=== PATIENT | male | born 1980 | race Caucasian/White ===

== ENCOUNTER 2019-09-22 02:46 | Emergency (ER) | payer OTHER ==
[~2019-09-22] VITALS: Ht 177.8 cm; Wt 102.5 kg
[2019-09-22 03:30] VITALS: BP_SYST 132
--- NOTE | 2019-09-22 03:58 | NUR ---
Patient to ER bed H1 to gown for evaluation. Side rails up.
[2019-09-22] MEDS ORDERED: ASPIRIN 81 MG TAB.CHEW PO ONE (04:00)
--- NOTE | 2019-09-22 04:00 | NUR ---
Patient came to ER. C/O Palpitation x 2-3 days. Patient states "had palpitation on and off since Wednesday, no shortness of breath or chest pain. " Denies heart problems A/O,X4, palpitation, vss.
--- NOTE | 2019-09-22 04:05 | NUR ---
ER at bedside examining patient.
--- NOTE | 2019-09-22 04:19 | NUR ---
X- ray at bedside.
[2019-09-22 04:39] LABS: BASOPHILS % (AUTO) 0.6 % (0.0-2.0); EOSINOPHILS # (AUTO) 0.2 K/uL (0.0-0.4); EOSINOPHILS % (AUTO) 2.7 % (0.0-4.0); HEMATOCRIT 45.1 % (36-54); HEMOGLOBIN 15.5 g/dL (14.0-18.0); LYMPHOCYTES # (AUTO) 3.1 K/uL (1.0-5.5); LYMPHOCYTES % (AUTO) 38.1 % (20.5-51.5); MEAN CORPUSCULAR HEMOGLOBIN 32 pg (27-31); MEAN CORPUSCULAR HGB CONC 34 % (32-36); MEAN CORPUSCULAR VOLUME 92 fL (79.0-98.0); MONOCYTES # (AUTO) 0.9 K/uL (0.0-1.0); MONOCYTES % (AUTO) 10.4 % (1.7-9.3); NEUTROPHILS % (AUTO) 48.2 % (40.0-70.0); PLATELET COUNT (AUTO) 193 K/uL (130-430); RED BLOOD CELL COUNT(AUTO) 4.89 MIL/uL (4.2-6.2); RED CELL DISTRIBUTION WIDTH 13.1 % (9.0-15.0); WHITE BLOOD COUNT (AUTO) 8.2 K/uL (4.8-10.8)
[2019-09-22 04:50] LABS: CALCIUM 9.6 mg/dL (8.4-11.0); CREATININE 1.22 mg/dL (0.55-1.30); POTASSIUM 3.7 mmol/L (3.5-5.1)
[2019-09-22 04:55] LABS: PROTHROMBIN TIME 10.1 SECS (9.5-12.5)
[2019-09-22 04:56] LABS: ALBUMIN 4.1 g/dL (3.4-4.8); TOTAL BILIRUBIN 0.4 mg/dL (0.0-1.0)
[2019-09-22 05:54] VITALS: BP_SYST 126
== END 2019-09-22 05:54 | disposition home or self-care (01) ==
LOC: SED 02:46
DX: R00.2 Palpitations (principal)
CPT/HCPCS: 36415; 71045; 80053; 84484; 85025; 85610-TC; 85730-TC; 93005; 99285